=== PATIENT | female | born 1970 | race Caucasian/White ===

== ENCOUNTER 2018-04-06 12:45 | Emergency (ER) | payer SELFPAY ==
[~2018-04-06] VITALS: Ht 172.7 cm; Wt 109.9 kg
[2018-04-06 12:50] VITALS: BP 127/96
--- NOTE | 2018-04-06 13:28 | ED.ADGEN ---
Adult General Chief Complaint Chief Complaint Left wrist laceration HPI HPI Patient is a 48-year-old right-handed female presents for evaluation of right hand evaluation after lacerating her first interphalangeal webspace approximately 2 days ago. Patient's concerned that the wound is not completely healed. On exam, the patient has 1.5 cm linear, superficial laceration with minimal gaping, no active bleeding, no surrounding erythema or signs of infection. No other symptoms or complaints patient has not been evaluated for her symptoms prior to ED arrival. Review of Systems Review of Systems Review symptoms as per history of present illness. All other review symptoms are negative. All other systems were reviewed and found to be within normal limits, except as documented in this note. Physical Exam Physical Exam Constitutional: Well developed, well nourished, no acute distress, non-toxic appearance. [] Extremities: Left wrist last, 1.5 cm professional linear laceration to the first interphalangeal webspace. N Gerard.[] Neurologic: Alert and oriented X 3, normal motor function, normal sensory function, no focal deficits noted. [] Psychologic: Affect normal, judgement normal, mood normal. [] EKG EKG [] Radiology/Procedures Radiology/Procedures [] Course & Med Decision Making Course & Med Decision Making Pertinent Labs and Imaging studies reviewed. (See chart for details) [Patient reassured, recommend continued supportive care with PCP follow-up as needed.] Final Impression Final Impression [Left hand hand laceration] Dragon Disclaimer Dragon Disclaimer This electronic medical record was generated, in whole or in part, using a voice recognition dictation system. CUBA MONAE DO Apr 06, 2018 13:28
== END 2018-04-06 13:30 | disposition home or self-care (01) ==
LOC: ER 12:45
DX: S61.412A Laceration without foreign body of left hand, initial encounter (principal); X58.XXXA Exposure to other specified factors, initial encounter; Y93.89 Activity, other specified; Y92.89 Other specified places as the place of occurrence of the external cause; Y99.8 Other external cause status
CPT/HCPCS: 99283